=== PATIENT | male | born 1950 | race African-American/Black ===

== ENCOUNTER 2023-07-04 17:26 | Emergency (ER) | payer OTHER ==
[~2023-07-04] VITALS: Ht 172.7 cm; Wt 82.0 kg
[2023-07-04 17:33] VITALS: O2SAT 95
[2023-07-04] MEDS: SODIUM CHLORIDE 0.9% 1,000 ML IV ONE (18:30)
[2023-07-04 18:44] LABS: BASOPHILS % 0.7 % (0.0-2.0); EOSINOPHILS % 0.9 % (0.0-5.0); LYMPHOCYTES % 16.9 % (20.0-50.0); MEAN CORPUSCULAR HGB CONC 34.1 g/dL (31.0-37.0); MEAN PLATELET VOLUME 8.7 fl (7.4-10.4); MONOCYTES % 6.2 % (2.0-8.0); NEUTROPHILS % 75.3 % (40.0-76.0); PLATELET 244 x1000/uL (130-400); RED BLOOD CELL COUNT 5.18 mill/uL (4.7-6.1); RED CELL DISTRIBUTION WIDTH 13.3 % (11.6-14.6)
[2023-07-04] MEDS ORDERED: HYDRALAZINE 20MG/ML VIAL IV ONE (19:00)
[2023-07-04 19:06] LABS: ALANINE AMINOTRANSFERASE < 7 IU/L (10-49); ALBUMIN 4.3 g/dL (3.2-4.8); ASPARTATE AMINOTRANSFERASE 15 IU/L (<34); BILIRUBIN TOTAL 0.7 mg/dL (0.1-1.0); CARBON DIOXIDE 31 mEq/L (21-32); CHLORIDE 98 mEq/L (98-107); CREATININE 1.3 mg/dL (0.6-1.3); GLUCOSE 333 mg/dL (70-105); POTASSIUM 3.8 mEq/L (3.5-5.1); PROTEIN TOTAL 8.1 g/dL (6.0-8.3); SODIUM 133 mEq/L (136-145); TROPONIN I HIGH SENSITIVITY 4 ng/L (3.0-53); UREA NITROGEN BLOOD 16 mg/dL (9-23)
[2023-07-04] MEDS ORDERED: INSULIN REGULAR (HUMULIN R) 300UNITS/3ML VIAL IV ONE (19:30)
[2023-07-04] MEDS ORDERED: CLONIDINE 0.2MG TABLET PO ONE (21:45)
[2023-07-04 22:20] LABS: TROPONIN I HIGH SENSITIVITY 4 ng/L (3.0-53)
[2023-07-04] MEDS: BLOOD SUGAR DIAGNOSTIC STRIP TEST ONE (23:11)
[2023-07-04] MEDS: HYDRALAZINE 20MG/ML VIAL IV NR (23:19)
[2023-07-04 23:45] VITALS: BP 158/76; PULSE 77; RESP 21; TEMP 98.5
[2023-07-04] MEDS: INSULIN REGULAR (HUMULIN R) 300UNITS/3ML VIAL IV NR (23:46)
[2023-07-04] MEDS: CLONIDINE 0.1MG TABLET PO NR (23:47)
== END 2023-07-05 00:47 | disposition short-term general hospital (02) ==
LOC: ER 17:26
DX: E11.65 Type 2 diabetes mellitus with hyperglycemia (principal); J44.9 Chronic obstructive pulmonary disease, unspecified; I10 Essential (primary) hypertension; I25.2 Old myocardial infarction
CPT/HCPCS: 99285; 96374; 96361; 71045; 96375; 80053; 83880; 85025; 84484; 36415; 93005; 82962; J0360; J7030; J1815